=== PATIENT | male | born 1945 | race Caucasian/White ===

== ENCOUNTER → 2018-03-29 | Outpatient (CLI) | payer OTHER ==
[2017-12-19 11:00] VITALS: BP 106/64
[~2018-03-29] MED LIST: ASPI-612 PO; ATOR20TA58 PO; METO25TA4 PO; PRAS10TA9 PO
--- NOTE | 2018-03-29 09:52 | CARD ---
MR#: [id number] Date of Study: 03/29/2018 Ordering Physician: DIAZ MICHAUD, Referring Physician: DIAZ MICHAUD, Tech: ALEJANDRO Dewey APPROVED REPORT EXAM: Two-dimensional and M-mode echocardiogram with Doppler and color Doppler. Other Information Quality : AverageHR: 52bpm INDICATION Hypertension/HCVD RISK FACTORS Hypertension 2D DIMENSIONS RVDd4.4 (2.9-3.5cm)Left Atrium(2D)3.0 (1.6-4.0cm) IVSd0.9 (0.7-1.1cm)Aortic Root(2D)3.3 (2.0-3.7cm) LVDd4.6 (3.9-5.9cm)LVOT Diameter2.0 (1.8-2.4cm) PWd0.8 (0.7-1.1cm)LVDs3.0 (2.5-4.0cm) FS (%) 34.2 %SV60.4 ml LVEF(%)63.3 (>50%) Aortic Valve AoV Peak Otoniel.148.5cm/sAoV VTI34.6cm AO Peak GR.8.8mmHgLVOT Peak Otoniel.99.9cm/s LVOT VTI 22.21cmAO Mean GR.5mmHg MERNA (VMAX)1.36cn6DAM (VTI)2.02cm2 AI P 1/2 Mlag491kq Mitral Valve MV E Pswpbfcx81.5cm/sMV E Peak Gr.40mmHg MV DECEL GYRM352rwUM A Vmiimjrp06.1cm/s MV SEL324mpQ/A Ratio0.7 MVA (PHT)2.09cm2 TDI E/Lateral E'6.7E/Medial E'9.7 Pulmonary Valve PV Peak Uudkqjxe58.9cm/sPV Peak Grad.3mmHg Tricuspid Valve TR P. Tmfrdmpt645cj/sTR Peak Gr.19mmHg Pulmonary Vein S1 Wlswoguy04.9cm/sD2 Gazgvlmq60.8cm/s LEFT VENTRICLE The left ventricle is normal size. There is normal left ventricular wall thickness. The left ventricu lar systolic function is normal and the ejection fraction is within normal range. EF 55% There is nor mal LV segmental wall motion. Transmitral Doppler flow pattern is Grade I-abnormal relaxation pattern . RIGHT VENTRICLE The right ventricle is moderately dilated. The right ventricular systolic function is low normal. ATRIA The left atrium size is normal. The right atrium size is dilated. The interatrial septum is intact wi th no evidence for an atrial septal defect or patent foramen ovale as noted on 2-D or Doppler imaging . AORTIC VALVE The aortic valve is mildly calcified. Doppler and Color Flow revealed mild aortic regurgitation. Ther e is no significant aortic valvular stenosis. There is no aortic valvular vegetation. MITRAL VALVE The mitral valve is normal in structure. A borderline mitral valve prolapse is present. There is no m itral valve stenosis. Doppler and Color-flow revealed trace mitral regurgitation. TRICUSPID VALVE The tricuspid valve is normal in structure and function. Doppler and Color Flow revealed trace to mil d tricuspid regurgitation. There is no tricuspid valve prolapse or vegetation. There is no tricuspid valve stenosis. PULMONIC VALVE The pulmonic valve is not well visualized. Doppler and Color Flow revealed no pulmonic valvular regur gitation. There is no pulmonic valvular stenosis. GREAT VESSELS The aortic root is normal size. The aortic root displays mild sclerocalcific changes of the aortic an nulus. The IVC is normal in size and collapses >50% with inspiration. PERICARDIAL EFFUSION There is no pleural effusion. There is no evidence of significant pericardial effusion. Critical Notification Critical Value: No <Conclusion> The left ventricular systolic function is normal and the ejection fraction is within normal range. EF 55% There is normal LV segmental wall motion. The right ventricle is moderately dilated. The right ventricular systolic function is low normal. Doppler and Color Flow revealed mild aortic regurgitation. Doppler and Color Flow revealed trace to mild tricuspid regurgitation. Signed by : Diaz Michaud, Electronically Approved : 03/29/2018 09:51:11
== END | disposition home or self-care (01) ==
LOC: ECHO 08:52
PROVIDERS: ATTEND Internal Medicine Cardiovascular Disease
DX: I08.2 Rheumatic disorders of both aortic and tricuspid valves (principal); I11.0 Hypertensive heart disease with heart failure; I50.32 Chronic diastolic (congestive) heart failure; I25.10 Atherosclerotic heart disease of native coronary artery without angina pectoris; Z87.891 Personal history of nicotine dependence
CPT/HCPCS: 93306

== ENCOUNTER → 2019-01-11 | Outpatient (CLI) | payer OTHER ==
[2017-12-19 11:00] VITALS: BP 106/64
[~2019-01-11] MED LIST changes: +REGADENOSON 0.4 MG/5 ML DISP.SYRIN. IV ONE
--- NOTE | 2019-01-11 11:57 | RAD ---
MR#: [id number] Date of Study: 01/11/2019 Ordering Physician: DIAZ CRISOSTOMO, Referring Physician: BENJAMIN DEY Tech: JOEPSH Burrell, ARRT (R) (N) APPROVED REPORT Test Type: Pharmacological Stress Nurse/Tech: Mandy Lal R.N. Test Indications: CAD Cardiac History: Hypertension, High cholesterol, former smoker, CAD. 2 stents Medications: Zocor Medical History: See Electronic Medical Record Resting ECG: s rosa with PVC's, runs of bigeminy Resting Heart Rate: 58 bpm Resting Blood Pressure: 157/79mmHg Pretest Chest Pain: No chest pain Nurse/Tech Notes S1S2, lungs sound clear. Pt took his Metoprolol this am, so test changed to Lexiscan. Dr Crisostomo informed by nurse relaying info while is scrubbed in a case Consent: The procedure was explained to the patient in lay terms. Informed consent was witnessed. Elie eout was entered into [employer]. History and Stress Test performed by Mandy Lal R.N. Pharm. Details Pharmacologic stress testing was performed using 0.4mg per 5ml of regadenoson given intravenously ove r 7-10 seconds. Stress Symptoms Dyspnea POST EXERCISE Reason for Termination: Infusion complete Max HR: 96 bpm Max Blood Pressure: 176/84mmHg Blood Pressure response to exercise: Normal blood pressure response during stress. Chest Pain: No. Arrhythmia: Yes. freq. PVC's with runs of bigeminy ST Change: No. INTERPRETATION Stress EKG Conclusion: Baseline EKG showed sinus rhythm. No ischemic changes at peak stress. Few PV C's without any significant arrhythmias. Imaging Protocol IMAGE PROTOCOL: Rest Tc-99m/stress Tc-99m 1 day Rest: Stress: Viability: Radiopharm.Tc99m PkkaozbrwCo25c Sestamibi Rdrr80kMe 32mCi Img Date 01/11/2019 01/11/2019 Inj-Img Jbys72nnb. 45min. Rest Admin Site:IV - Right AntecubitalAdministrator:Dorina Velazquez, RT (R)(N) Stress Admin Site: IV - Right AntecubitalAdministrator: RT Ana M (R)(N) STRESS DATA End Diast. Vol.105.0mlAv. Heart Rate63.0bpm End Syst. Vol.40.0mlCO Index BSA0.0L/min Myocardial Jvqc468.0gEject. Cfmiomqz07.0% Stress Rates Pk. Fill Rate1.63EDV/secLVtime Pk. Fill 198.92msec Pk. Empty Rate2.72ESV/secLVtime Pk. Imftq175.11msec 07/27 Pk. Fill0.97EDV/sec Stress Scores Regional WT1.00Summed WT16.00 Regional WM0.00Summed WM5.00 LV Perfusion Scintigraphic images showed small to moderate fixed defect involving the base to mid inferior wall co nsistent with previous myocardial infarction without any reversibility. Wall Motion Basal inferior wall hypokinesis with ejection fraction calculated at 62%. LV Perf. Quant 17 Seg. SSS12.00 17 Seg. SRS12.00 17 Seg. SDS0.00 Stress Defect Extent (% LAD)10.00Rest Defect Extent (% LAD)19.40Rev. Defect Extent (% LAD)0.00 Stress Defect Extent (% LCX) 0.00Rest Defect Extent (% LCX)0.00Rev. Defect Extent (% LCX)0.00 Stress Defect Extent (% RCA)75.60Rest Defect Extent (% RCA)86.70Rev. Defect Extent (% RCA)0.00 Stress Defect Extent (% WENDIE)26.70Rest Defect Extent (% WENDIE)30.90Rev. Defect Extent (% WENDIE)0.00 Conclusion 1. Regadenoson cardioisotope stress test showed ezzrw-iq-cedbzptg infarct involving the base to mid i nferior wall without any significant ischemia. 2. Basal inferior wall hypokinesis with ejection fraction calculated at 62%. 3. Low risk for cardiac events. Signed by : Jose Hackett, Electronically Approved : 01/11/2019 11:57:22
== END | disposition home or self-care (01) ==
LOC: NM 08:15
PROVIDERS: ATTEND Internal Medicine Cardiovascular Disease
DX: I21.19 ST elevation (STEMI) myocardial infarction involving other coronary artery of inferior wall (principal); I25.10 Atherosclerotic heart disease of native coronary artery without angina pectoris; I10 Essential (primary) hypertension; E78.00 Pure hypercholesterolemia, unspecified; Z87.891 Personal history of nicotine dependence; Z95.818 Presence of other cardiac implants and grafts
CPT/HCPCS: 78452; 93017; A9500; J2785

== ENCOUNTER → 2020-02-01 | Outpatient (CLI) | payer MEDICARE ==
[2017-12-19 11:00] VITALS: BP 106/64
[~2020-02-01] MED LIST changes: -REGADENOSON 0.4 MG/5 ML DISP.SYRIN. IV ONE
--- NOTE | 2020-02-01 14:53 | CARD ---
MR#: [id number] Date of Study: 02/01/2020 Ordering Physician: DIAZ MICHAUD, Referring Physician: DIAZ MICHAUD, Tech: Nieves Andrade [facility] APPROVED REPORT EXAM: Two-dimensional and M-mode echocardiogram with Doppler and color Doppler. Other Information Quality : AverageHR: 69bpm Rhythm : NSR INDICATION COPD Hypertension/HCVD CAD RISK FACTORS Hypertension Hyperlipidemia 2D DIMENSIONS RVDd3.6 (2.9-3.5cm)Left Atrium(2D)3.2 (1.6-4.0cm) IVSd1.0 (0.7-1.1cm)Aortic Root(2D)4.2 (2.0-3.7cm) LVDd4.7 (3.9-5.9cm)LVOT Diameter2.0 (1.8-2.4cm) PWd1.0 (0.7-1.1cm)LVEF(%)56.0 (>50%) Aortic Valve AoV Peak Otoniel.1.6cm/s LEFT VENTRICLE The left ventricle is normal size. There is normal left ventricular wall thickness. The left ventricu lar systolic function is low normal. EF 50% There is normal LV segmental wall motion. Tissue Doppler imaging reveals moderate left ventricular diastolic dysfunction. RIGHT VENTRICLE The right ventricle is moderately dilated. There is normal right ventricular wall thickness. The righ t ventricular systolic function is normal. ATRIA The left atrium size is normal. The right atrium is mildly dilated. The interatrial septum is intact with no evidence for an atrial septal defect or patent foramen ovale as noted on 2-D or Doppler imagi ng. AORTIC VALVE The aortic valve is calcified but opens well. Doppler and Color Flow revealed trace to mild aortic re gurgitation. There is no significant aortic valvular stenosis. MITRAL VALVE The mitral valve is normal in structure and function. There is no evidence of mitral valve prolapse. Doppler and Color Flow revealed no mitral valve regurgitation noted. TRICUSPID VALVE The tricuspid valve is normal in structure and function. Doppler and Color Flow revealed no tricuspid valve regurgitation noted. There is no tricuspid valve stenosis. PULMONIC VALVE Doppler and Color Flow revealed no pulmonic valvular regurgitation. There is no pulmonic valvular gunnar nosis. GREAT VESSELS The aortic root is normal in size. The ascending aorta is mildly dilated at 4.2 cm. The IVC is normal in size and collapses >50% with inspiration. PERICARDIAL EFFUSION There is no evidence of significant pericardial effusion. Critical Notification Critical Value: No <Conclusion> The left ventricular systolic function is low normal. EF 50% There is normal LV segmental wall motion. The right ventricle is moderately dilated. Doppler and Color Flow revealed trace to mild aortic regurgitation. The ascending aorta is mildly dilated at 4.2 cm. Signed by : Diaz Michaud, Electronically Approved : 02/01/2020 14:52:35
--- NOTE | 2020-02-01 15:55 | RAD ---
Bilateral carotid artery duplex ultrasound study without comparison for hypertension, prior [place], coronary artery disease. TECHNIQUE AND FINDINGS: Real-time grayscale and color and spectral Doppler evaluation of the carotid arteries is performed. There is calcified atherosclerosis involving the common carotid artery, with bulky calcified disease in the proximal right internal carotid artery. Peak systolic velocity within the right common carotid artery 65 cm/s, and within the right internal carotid artery, 131 cm/s, constituting a ratio of 2.02. Highest end-diastolic velocity of the right internal carotid artery is 40 cm/s. On the left, there is mild calcified atherosclerosis of the common carotid artery, with scan with bulky mixed calcified and soft atherosclerosis of the left internal carotid artery. Peak systolic velocity of the left common carotid artery is 81 cm/s proximally, with a peak systolic velocity of the left internal carotid artery being 105 seen per second. This corresponds to a ratio 1.3. Highest end-diastolic velocity left internal carotid artery is 35 cm/s. There is antegrade flow within both vertebral arteries. IMPRESSION: 1. Bulky calcified atherosclerosis in the right internal carotid artery with findings corresponding to 50 is 69 percent stenosis. 2. Bulky mixed atherosclerosis in the left internal carotid artery, with findings corresponding to less than 50 percent stenosis. Stenosis calculations for CT, MR and conventional angiography are based upon measurement of the distal ICA diameter in accordance with the NASCET methodology. Stenosis calculations for carotid ultrasound studies are derived from validated velocity criteria which are known to correlate with the NASCET methodology. Electronically signed by: Trevin Kirk MD (02/01/2020 3:52 PM) [id number]
--- NOTE | 2020-02-01 15:59 | RAD ---
Abdominal aortic ultrasound without comparison for coronary artery disease. TECHNIQUE AND FINDINGS: Real-time grayscale and color and spectral Doppler evaluation of the aortoiliac arteries is performed. The aorta is patent. The infrarenal aorta is mildly aneurysmal 3.9 cm. Bilateral common iliac arteries are patent and nonaneurysmal. Peak systolic velocity of the aorta is 76.4 cm. Peak systolic velocity of the right iliac artery is 366.5 cm, and of the left internal iliac artery to 11.6 cm. These velocities are elevated and suggest hemodynamically significant stenosis bilaterally, right greater than left. IMPRESSION: 1. Mildly aneurysmal abdominal aorta at 3.9 cm. 2. Hemodynamic significant bilateral common iliac artery stenoses. Electronically signed by: Trevin Kirk MD (02/01/2020 3:56 PM) [id number]
== END ==
LOC: ECHO 12:41
PROVIDERS: ATTEND Internal Medicine Cardiovascular Disease
DX: I71.4 Abdominal aortic aneurysm, without rupture (principal); I77.1 Stricture of artery; I65.23 Occlusion and stenosis of bilateral carotid arteries; I10 Essential (primary) hypertension; I25.10 Atherosclerotic heart disease of native coronary artery without angina pectoris
CPT/HCPCS: 93306; 93880; 93978

== ENCOUNTER 2020-06-15 21:39 | Emergency (ER) | payer MEDICARE ==
[~2020-06-15] VITALS: Ht 175.3 cm; Wt 68.2 kg
[~2020-06-15 21:39] MED LIST changes: -ASPI-612 PO; +ASPI-886 PO
[2020-06-15 23:09] LABS: BASO # 0.1 x10^3/uL (0.0-0.2); BASO % 1 % (0-3); EOS # 0.2 x10^3/uL (0.0-0.7); EOS % 2 % (0-3); HEMATOCRIT 44.6 % (39.0-53.0); HEMOGLOBIN 15.5 g/dL (13.0-17.5); LYMPH # 0.9 x10^3/uL (1.0-4.8); LYMPH % 9 % (24-48); MEAN CORPUSCULAR HEMOGLOBIN 30 pg (25-35); MEAN CORPUSCULAR HGB CONC 35 g/dL (31-37); MEAN CORPUSCULAR VOLUME 86 fL (79-100); MONO # 1.1 x10^3/uL (0.0-1.1); MONO % 10 % (0-9); NEUT # 7.9 x10^3/uL (1.8-7.7); NEUT % 78 % (31-73); PLATELET COUNT 331 x10^3/uL (140-400); RED CELL DISTRIBUTION WIDTH 13.4 % (11.5-14.5); WHITE BLOOD COUNT 10.2 x10^3/uL (4.0-11.0)
[2020-06-15 23:16] LABS: CALCIUM 9.6 mg/dL (8.5-10.1); CREATININE 0.9 mg/dL (0.7-1.3); GFR 82.5
[2020-06-15 23:23] LABS: ALBUMIN 3.8 g/dL (3.4-5.0); ALBUMIN/GLOBULIN RATIO 1.1 (1.0-1.7); C-REACTIVE PROTEIN 3.4 mg/L (0-3.3); TOTAL BILIRUBIN 1.2 mg/dL (0.2-1.0); TOTAL PROTEIN 7.4 g/dL (6.4-8.2)
[2020-06-15 23:26] VITALS: BP 146/76
[2020-06-15] MEDS ORDERED: IPRATRPIUM/ALBUTEROL 0.5/2.5MG 3 ML NEBU. NEB ONE (23:30)
[2020-06-15] MEDS ORDERED: METH4TAB2 PO (23:43)
[2020-06-15] MEDS ORDERED: VENTOLIN HFA18 GM INH (23:43)
--- NOTE | 2020-06-15 23:44 | ED.ADGEN ---
Past Medical History Past Medical History: [place] Past Surgical History: Other Additional Past Surgical Histo: cardiac stents Smoking Status: Former Smoker Alcohol Use: None Drug Use: Marijuana General Adult EDM: Chief Complaint: DYSPNEA/RESPIRATOY DISTRESS HPI: HPI: Patient is 75-year-old male with past medical history of coronary artery disease who presents to the emergency room complaining of shortness of breath. Patient states that he was fine this morning. He was working today and got into some dust. Shortly after he started having shortness of breath. He states that he can tell he is having a hard time breathing and can hear himself breathing. He is unsure if he is having any wheezing. He is not having any cough, URI symptoms, fever, chills, sweats, abdominal pain, change of taste, change of smell. He does not have any chest pain with this. This does not feel similar to when he had his heart attack. Review of Systems: Review of Systems: Complete ROS is negative unless otherwise documented in HPI Current Medications: Current Medications Medications (Trade) Dose Ordered Sig/Joi Start Time Stop Time Status Last Admin Dose Admin Albuterol/ Ipratropium (Duoneb) 3 ml 1X ONCE 06/15/20 23:30 06/15/20 23:31 DC 06/15/20 23:05 3 ML Dexamethasone Sodium Phosphate (Decadron) 10 mg 1X ONCE 06/15/20 23:45 06/15/20 23:46 DC 06/15/20 23:25 10 MG Allergies: Allergies: Allergies Coded Allergies Type Severity Reaction Last Updated Verified No Known Drug Allergies 12/17/17 No Physical Exam: PE: General: Awake, alert, NAD. Well Nourished, well hydrated. Cooperative HEENT: Atraumatic, EOMI, PERRL, airway patent, moist oral mucosa Neck: Supple, trachea midline Respiratory: Mild tachypnea, diffuse minimal wheezing, decreased breath sounds bilaterally CV: RRR, no murmur, cap refill <2 GI: Soft, nondistended, nontender, no masses MSK: No obvious deformities Skin: Warm, dry, intact Neuro: A&O x3, speech NL, sensory and motor grossly intact, no focal deficits Psych: Normal affect, normal mood, not suicidal or homicidal Current Patient Data: Labs: Laboratory Tests Test 06/15/20 23:00 White Blood Count 10.2 x10^3/uL (4.0-11.0) Red Blood Count 5.20 x10^6/uL (4.30-5.70) Hemoglobin 15.5 g/dL (13.0-17.5) Hematocrit 44.6 % (39.0-53.0) Mean Corpuscular Volume 86 fL (79-100) Mean Corpuscular Hemoglobin 30 pg (25-35) Mean Corpuscular Hemoglobin Concent 35 g/dL (31-37) Red Cell Distribution Width 13.4 % (11.5-14.5) Platelet Count 331 x10^3/uL (140-400) Neutrophils (%) (Auto) 78 % (31-73) H Lymphocytes (%) (Auto) 9 % (24-48) L Monocytes (%) (Auto) 10 % (0-9) H Eosinophils (%) (Auto) 2 % (0-3) Basophils (%) (Auto) 1 % (0-3) Neutrophils # (Auto) 7.9 x10^3/uL (1.8-7.7) H Lymphocytes # (Auto) 0.9 x10^3/uL (1.0-4.8) L Monocytes # (Auto) 1.1 x10^3/uL (0.0-1.1) Eosinophils # (Auto) 0.2 x10^3/uL (0.0-0.7) Basophils # (Auto) 0.1 x10^3/uL (0.0-0.2) Sodium Level 135 mmol/L (136-145) L Potassium Level 4.0 mmol/L (3.5-5.1) Chloride Level 100 mmol/L (98-107) Carbon Dioxide Level 27 mmol/L (21-32) Anion Gap 8 (6-14) Blood Urea Nitrogen 17 mg/dL (8-26) Creatinine 0.9 mg/dL (0.7-1.3) Estimated GFR (Cockcroft-Gault) 82.5 BUN/Creatinine Ratio 19 (6-20) Glucose Level 107 mg/dL (70-99) H Calcium Level 9.6 mg/dL (8.5-10.1) Total Bilirubin 1.2 mg/dL (0.2-1.0) H Aspartate Amino Transferase (AST) 21 U/L (15-37) Alanine Aminotransferase (ALT) 18 U/L (16-63) Alkaline Phosphatase 120 U/L (46-116) H Lactate Dehydrogenase 155 U/L (85-227) Creatine Kinase 86 U/L (39-308) Troponin I Quantitative < 0.017 ng/mL (0.000-0.055) C-Reactive Protein, Quantitative 3.4 mg/L (0-3.3) H TN-Mlh-H-Type Natriuretic Peptide 574 pg/mL (0-124) H Total Protein 7.4 g/dL (6.4-8.2) Albumin 3.8 g/dL (3.4-5.0) Albumin/Globulin Ratio 1.1 (1.0-1.7) Laboratory Tests 06/15/20 23:00 Laboratory Tests 06/15/20 23:00 Vital Signs: Vital Signs Date Time Temp Pulse Resp B/P (MAP) Pulse Ox O2 Delivery O2 Flow Rate FiO2 06/15/20 23:26 100 26 146/76 (99) 99 Nasal Cannula 2.0 06/15/20 22:10 97.4 97.4 EKG: EKG: [] Heart Score: Risk Factors: Risk Factors: DM, Current or recent (<one month) smoker, HTN, HLP, family history of CAD, obesity. Risk Scores: Score 0 - 3: 2.5% MACE over next 6 weeks - Discharge Home Score 4 - 6: 20.3% MACE over next 6 weeks - Admit for Clinical Observation Score 7 - 10: 72.7% MACE over next 6 weeks - Early Invasive Strategies Radiology/Procedures: Radiology/Procedures: [] Course & Med Decision Making: Course & Med Decision Making Pertinent Labs and Imaging studies reviewed. (See chart for details) Patient is 75-year-old male who presents to the emergency room complaining of shortness of breath. Patient has mild tachypnea and wheezing. He will be given DuoNeb and Decadron. He likely has undiagnosed COPD given his long history of smoking. He does not have any other infectious symptoms that would be suggestive of coronavirus 19 and he does not want to be tested at this time. Chest x-ray shows chronic changes. Lab work is overall unremarkable. Patient's test results and vitals while in the ED were fully reviewed and discussed with the patient. Patient is stable and at this time does not need admission to the hospital. We have discussed strict return precautions and the importance of following up with their Primary Care Physician. Patient stated understanding and was given an opportunity to ask any questions. Patient is in agreement with plan. Dragon Disclaimer: [place] Disclaimer: This electronic medical record was generated, in whole or in part, using a voice recognition dictation system. Departure Departure Impression: Primary Impression: Shortness of breath Additional Impression: Reactive airway disease Disposition: 01 DC HOME SELF CARE/HOMELESS Condition: STABLE Referrals: Brett JOSHI MD (PCP) Patient Instructions: Shortness of Breath Scripts Albuterol Sulfate (VENTOLIN HFA INHALER) 18 Gm Hfa.aer.ad 2 PUFF INH Q4HRS PRN for SHORTNESS OF BREATH, #1 INHALER 0 Refills Prov: ELIANA ALTAMIRANO MD 06/15/20 Methylprednisolone (MEDROL) 4 Mg Tab.ds.pk 1 PKG PO UD for inflammation, #1 PKG Prov: ELIANA ALTAMIRANO MD 06/15/20 Problem Qualifiers ELIANA ALTAMIRANO MD Jun 15, 2020 23:43
[2020-06-15] MEDS ORDERED: DEXAMETHASONE SOD PHOS 4 MG/ML VIAL IVP ONE (23:45)
--- NOTE | 2020-06-16 01:02 | RAD ---
EXAMINATION: CHEST AP ONLY CLINICAL HISTORY: Cough, possible Covid EXAM DATE/TIME: 06/15/2020 10:30 PM COMPARISON: 12/17/2017 FINDINGS: Lines, Tubes, and Devices: None. Cardiomediastinal Silhouette: Normal heart size. Aortic atherosclerotic calcification. Lungs and Pleura: No evidence of focal airspace consolidation or pleural effusion. Pulmonary vasculature unremarkable. Probable old granuloma in the right midlung zone, similar to prior study. Bones and Soft Tissues: Degenerative changes of the thoracic spine. IMPRESSION: No evidence of acute cardiopulmonary abnormality or significant interval change. Electronically signed by: Yosvany Rojo DO (06/16/2020 12:59 AM) [facility]
--- NOTE | 2020-06-16 11:48 | EKG ---
[facility] [address] [place] [address] Test Date: 2020-06-15 Test Time: 22:45:13 Pat Name: ISAIAH NUNEZ Department: Room: Gender: M Production Quality Manager: : [id number] Requested By: ELIANA ALTAMIRANO Order Number: [id number] Reading MD: Measurements Intervals Jarratt Rate: 88 P: 76 LA: 146 QRS: 37 QRSD: 100 T: 67 QT: 348 QTc: 424 Interpretive Statements SINUS RHYTHM LEFT ATRIAL ABNORMALITY QRS(T) CONTOUR ABNORMALITY CONSISTENT WITH INFERIOR INFARCT PROBABLY OLD T ABNORMALITY IN LATERAL LEADS ABNORMAL ECG RI6.02 No previous ECG available for comparison
== END 2020-06-16 00:38 | disposition home or self-care (01) ==
LOC: ER 21:39
DX: J45.909 Unspecified asthma, uncomplicated (principal); R06.02 Shortness of breath; R00.0 Tachycardia, unspecified; I25.10 Atherosclerotic heart disease of native coronary artery without angina pectoris; I25.2 Old myocardial infarction; F12.90 Cannabis use, unspecified, uncomplicated; Z98.890 Other specified postprocedural states; Z87.891 Personal history of nicotine dependence
CPT/HCPCS: 36415; 71045; 80053; 82550; 83615; 83880; 84484; 85025; 86140; 93005; 94640; 96374; 99285; J1100

== ENCOUNTER → 2021-02-11 | Outpatient (CLI) | payer MEDICARE ==
[~2021-02-11] MED LIST changes: +METH4TAB2 PO; +VENTOLIN HFA18 GM INH
--- NOTE | 2021-02-11 14:03 | RAD ---
EXAM: CT CHEST WITHOUT CONTRAST (LDCT LUNG CANCER SCREENING). HISTORY: Risk factors for pulmonary malignancy. 60 year smoking 2 packs per day, no family history of lung cancer. TECHNIQUE: CT of the chest was performed without intravenous contrast using a low-dose lung screening protocol. Findings analysis is based on ACR Lung-RADS v1.1. *One or more of the following individual ized dose reduction techniques were utilized for this examination: 1. Automated exposure control. 2. Adjustment of the mA and/or kV according to patient size. 3. Use of iterative reconstruction technique. RADIATION DOSE: DLP: 73.8 mGy/cm CTDI VOL(per sequence): 2 COMPARISON: None. FINDINGS: Nodules: There is a cavitary, spiculated mass in the left upper lobe measuring 3.2 x 1.2 x 1.7 cm ext ending to the lateral pleural surface and fissure. . Calcified granuloma in the left upper lobe. Other findings: Images of the upper abdomen reveal no acute abnormality. Bone windows reveal no suspi cious lesions. 1.9 cm fat-containing paratracheal lymph node and 1.8 cm solid paratracheal lymph nodes are present. There is no pleural or pericardial effusion. The heart is not enlarged. There is severe three-vessel coronary artery calcification. Mild atherosclerotic disease of aorta and its partially visualized bra txh vessels of the upper abdomen. Calcifications in the region of the gallbladder fossa, likely afshan lithiasis. Mild emphysematous changes. Mild, diffuse bronchial wall thickening IMPRESSION/RECOMMENDATION: 1. ACR Lung-RADS category: LI-RADS 4X There is a cavitary, spiculated mass in the left upper lobe halley suring 3.2 cm in maximum dimension concerning for primary lung malignancy. PET/CT and/or tissue sampl ing are recommended. Electronically signed by: Gerardo Kahn (02/11/2021 2:00 PM) [id number]
== END ==
LOC: CT 09:55
PROVIDERS: ATTEND Family Medicine
DX: Z12.2 Encounter for screening for malignant neoplasm of respiratory organs (principal); R91.8 Other nonspecific abnormal finding of lung field; F17.210 Nicotine dependence, cigarettes, uncomplicated
CPT/HCPCS: 71271

== ENCOUNTER → 2021-02-27 | Outpatient (CLI) | payer MEDICARE ==
--- NOTE | 2021-02-27 12:02 | RAD ---
EXAM: Dual modality PET-CT Scan DATE: 02/27/2021 RADIOPHARMACEUTICAL: 14.41 mCi F-18 fluorodeoxyglucose (FDG) IV. CLINICAL HISTORY: Lung mass. COMPARISON: CT dated 02/11/2021. TECHNIQUE: Approximately 45 minutes after tracer administration, routine, attenuation-corrected Posit leonides Emission Tomography (PET) images were obtained from the level of the base of the skull through th e level of the mid thighs. Tomographic reconstructions are reviewed in coronal, transaxial and sagitt al planes. Non-contrast CT imaging was performed for attenuation correction and localization purpose s only. These images do not constitute a diagnostic-quality CT examination and were not used to diag nose disease independently of the PET images. The blood glucose level was 94 mg/dL at the time of FDG administration. *One or more of the following individualized dose reduction techniques were utilized for this examina tion: 1. Automated exposure control. 2. Adjustment of the mA and/or kV according to patient size. 3. Use of iterative reconstruction technique. FINDINGS: There is a radiotracer avid 3.1 cm irregular spiculated radiotracer avid mass with small in ternal cavitary component within the lateral left upper lobe with a maximum SUV of 9.7, the appearanc e of which favors primary bronchogenic neoplasm. There is mild nonspecific radiotracer activity withi n a left hilar lymph node with a maximum SUV of 2.4. This is not significantly above the blood pool a nd is within physiologic limits. There is increased radiotracer activity within the esophagus with an SUV of 3.2, the appearance of which favors esophagitis. No esophageal mass is seen. There is heterog eneous physiologic activity within the liver and osseous structures. There is physiologic activity wi thin the bowel and renal collecting system. The CT portion of the exam demonstrates a lobulated mass with spiculated margins and internal cavitat ion within the inferior lateral left upper lobe measuring 3.1 cm. There is pulmonary emphysema. There is a calcified granuloma within the right upper lobe. There is no pneumothorax or pleural effusion. The heart is normal in size. There are nonspecific mediastinal and hilar lymph nodes. There is a tiny hiatal hernia. No hepatic lesion is seen. There is a stone within the gallbladder neck. There is slight gallbladder wall calcification. The pancreas and spleen are unremarkable. There is slight nodular thickening of t he adrenal glands or there are small bilateral adrenal adenomas. The kidneys are unremarkable. There is no appendicitis. There is no bowel obstruction. There is moderate colonic stool. There is colonic diverticulosis. The prostate is enlarged and contains dystrophic calcifications. This results in deformation of the u rinary bladder. There is an infrarenal abdominal aortic aneurysm measuring 4.1 cm. There is aortobiil iac atherosclerosis. There is degenerative change throughout the spine and bony pelvis. There are few benign bone islands. The visualized portions of the brain are unremarkable. IMPRESSION: 1. 3.1 cm radiotracer avid left upper lobe mass with a maximum SUV of 9.7, the appearance of which fa vors primary bronchogenic neoplasm. 2. No convincing pathologically enlarged radiotracer avid mediastinal or hilar lymph node. There is a nonspecific left hilar lymph node with maximum SUV of 2.4, remaining within normal limits. 3. Mild radiotracer activity involving the esophagus. Correlate for esophagitis. No esophageal mass i s seen. 4. Pulmonary emphysema. 5. Stone within the gallbladder neck and slight gallbladder wall calcification. This can be better as sessed with color sonography. 6. Colonic diverticulosis. 7. Prostatomegaly resulting in deformation of the bladder base. Correlate with PSA levels. 8. 4.1 cm atherosclerotic abdominal aortic aneurysm. Electronically signed by: Dorina Gutierrez MD (02/27/2021 12:00 PM) [id number]
== END ==
LOC: PETSC 08:56
PROVIDERS: ATTEND Family Medicine
DX: R91.8 Other nonspecific abnormal finding of lung field (principal); J43.8 Other emphysema; K80.20 Calculus of gallbladder without cholecystitis without obstruction; K57.30 Diverticulosis of large intestine without perforation or abscess without bleeding; I71.4 Abdominal aortic aneurysm, without rupture; N40.1 Benign prostatic hyperplasia with lower urinary tract symptoms
CPT/HCPCS: 78815; A9552

== ENCOUNTER → 2021-03-26 | Outpatient (CLI) | payer MEDICARE ==
--- NOTE | 2021-03-26 12:45 | RAD ---
MR#: [id number] Date of Study: 03/26/2021 Ordering Physician: DIAZ MICHAUD, Referring Physician: DIAZ MICHAUD, Tech: Marino Coronel MBA, RDMS, RVT, RDCS, RTR APPROVED REPORT Patient Location: OUT-PATIENT Indications PAD Findings Right arm 142, left arm 149 Right ankle 142, left ankle 160 Right JEY 0.95, left JEY 1.1 Critical Notification Critical Value: No <Conclusion> 1. Normal bilateral JEY Signed by : Diaz Michaud, Electronically Approved : 03/26/2021 12:44:56
--- NOTE | 2021-03-26 12:46 | RAD ---
MR#: [id number] Date of Study: 03/26/2021 Ordering Physician: DIAZ MICHAUD, Referring Physician: DIAZ MICHAUD, Tech: Marino Coronel, TARIK, RDMS, RVT, RDCS, RTR APPROVED REPORT Patient Location: OUT-PATIENT Indications PAD VELOCITY AND DOPPLER WAVEFORM ANALYSIS RIGHT cm/secWaveformSeverity LEFT cm/secWaveform Severity dCFA 154.0BiphasicdCFA 111.0Biphasic Prof Fem Art. 56.0BiphasicProf Fem Art. 47.0Biphasic Fem Art Prox. 100.0BiphasicFem Art Prox. 115.0Biphasic Fem Art Mid. 156.0BiphasicFem Art Mid. 119.0Biphasic Fem Art Dist. 120.0BiphasicFem Art Dist. 84.0Biphasic Pop Art(Fossa) 49.0BiphasicPop Art(AK) 64.0Biphasic [employer] Prox. 41.0BiphasicPTA Prox. 77.0Biphasic [employer] Dist. 34.0BiphasicPTA Dist. 58.0Biphasic Per Art Mid. Per Art Mid. 48.0Biphasic ADELINA Prox. 35.0BiphasicATA Prox. 53.0Biphasic DPA 32BiphasicDPA 42Biphasic Findings Grayscale images of the bilateral lower extremity arterial vessels demonstrates moderate diffuse athe rosclerotic plaque. Biphasic waveforms noted throughout the bilateral lower extremity arterial vessels. Spectral waveforms and velocities are within normal limits overall with two-vessel runoff on the righ t and three-vessel runoff on the left. No focal high-grade stenosis is identified. The right perone al artery was not well visualized. Critical Notification Critical Value: No <Conclusion> 1. No significant bilateral lower extremity arterial disease. Signed by : Diaz Michaud, Electronically Approved : 03/26/2021 12:46:25
--- NOTE | 2021-03-26 12:48 | RAD ---
MR#: [id number] Date of Study: 03/26/2021 Ordering Physician: DIAZ MICHAUD, Referring Physician: DIAZ MICHAUD, Tech: Marino Coronel MBA, RDMS, RVT, RDCS, RTR APPROVED REPORT Patient Location: OUT-PATIENT Indications AAA Duplex Results A/PTransverseLongitudinal Distal Aorta 3.8cm4.1cm Rt. Common Iliac Artery1.0cm Lt. Common Iliac Artery 1.1cm Doppler VelocityWaveform Distal Aorta 72.0 cm/sec Rt. Common Iliac Gjcrza134.0 cm/sec Lt. Common Iliac Artery 220.0 cm/sec Findings There is a small to moderate size distal abdominal aortic aneurysm measuring approximately 3.8 cm. M ildly elevated bilateral iliac velocities are noted. The proximal and mid abdominal aorta was not we ll visualized. Critical Notification Critical Value: No <Conclusion> 1. Small to moderate size distal abdominal aortic aneurysm measuring approximately 3.8 cm. Limited evaluation of the abdominal aorta on this technically difficult study. Signed by : Diaz Michaud, Electronically Approved : 03/26/2021 12:47:43
--- NOTE | 2021-03-26 12:51 | RAD ---
MR#: [id number] Date of Study: 03/26/2021 Ordering Physician: DIAZ MICHAUD, Referring Physician: DIAZ MICHAUD, Tech: Marino Coronel MBA, RDMS, RVT, RDCS, RTR APPROVED REPORT Patient Location: OUT-PATIENT Laterality:Bilateral Indications CAROTID STENOSIS Doppler Spectral Velocity Analysis Right Left pCCA 81/18 cm/spCCA 104/28 cm/s mCCA 73/21 cm/smCCA 87/25 cm/s dCCA 66/20 cm/sdCCA 75/25 cm/s Bulb 106/23 cm/sBulb 93/28 cm/s ECA 184/ cm/sECA 216/ cm/s pICA 110/28 cm/spICA 122/33 cm/s Janusz 177/62 cm/smICA 138/44 cm/s dICA 226/82 cm/sdICA 134/38 cm/s Vert. 76/ cm/sVert. 65/ cm/s Subcl. 110/ cm/sSubcl. 114/ cm/s ICA/CCA 2.79ICA/CCA 1.33 Findings Grayscale images of the bilateral carotid vessels demonstrates moderate to severe diffuse atheroscler osis. On the right side there is likely a moderate 50 to 69% stenosis based on velocity criteria involving the distal internal carotid artery. On the left side there is overall again moderate 50 to 69% steno sis although based on velocity criteria end-diastolic velocities this is likely less than 50%. ICA to CCA ratios are mildly elevated at 3.1 on the right side and within normal limits on the left s brittnee. Critical Notification Critical Value: No <Conclusion> 1. Approximate 70% stenosis involving the distal right internal carotid artery. Signed by : Diaz Michaud, Electronically Approved : 03/26/2021 12:50:55
--- NOTE | 2021-03-26 16:19 | CARD ---
MR#: [id number] Date of Study: 03/26/2021 Ordering Physician: DIAZ MICHAUD, Referring Physician: DIAZ MICHAUD, Tech: Andrew Coates [facility] APPROVED REPORT EXAM: Two-dimensional and M-mode echocardiogram with Doppler and color Doppler. Other Information Quality : AverageHR: 64bpm Rhythm : NSR INDICATION Dyspnea RISK FACTORS Hypertension Hyperlipidemia Smoking Previous smoker, Recently diagnosed lung carcinoma 2D DIMENSIONS RVDd5.6 (2.9-3.5cm)Left Atrium(2D)3.3 (1.6-4.0cm) IVSd1.1 (0.7-1.1cm)Aortic Root(2D)3.7 (2.0-3.7cm) LVDd4.4 (3.9-5.9cm)LVOT Diameter1.9 (1.8-2.4cm) PWd1.0 (0.7-1.1cm)LVDs3.4 (2.5-4.0cm) FS (%) 22.7 %SV40.3 ml LVEF(%)45.9 (>50%) Aortic Valve AoV Peak Otoniel.181.9cm/sAoV VTI38.8cm AO Peak GR.13.2mmHgLVOT Peak Otoniel.93.7cm/s AO Mean GR.6mmHgAVA (VMAX)1.45cm2 Mitral Valve MV E Ianwhmcy12.8cm/sMV E Peak Gr.4mmHg MV DECEL [id number] A Mglpnkix294.7cm/s MV E Mean Gr.2mmHgE/A Ratio0.8 Pulmonary Valve PV Peak Fylqibkn968.7cm/s Tricuspid Valve TR P. Qwvvbasr544ts/sTR Peak Gr.24mmHg Pulmonary Vein S1 Hhqncila17.3cm/sD2 Fevfjwbm92.5cm/s LEFT VENTRICLE The left ventricle is normal size. There is normal left ventricular wall thickness. The left ventricu lar systolic function is normal. The ejection fraction is 55%. There is normal LV segmental wall jurgen on. No left ventricle thrombus noted on this study. There is no ventricular septal defect visualized. There is no left ventricular aneurysm. There is no mass noted in the left ventricle. RIGHT VENTRICLE The right ventricle is moderately dilated. There is normal right ventricular wall thickness. Systolic function is moderately reduced. Tapse reduced at 13mm. ATRIA The left atrium is mildly dilated. The right atrium is borderline dilated. The interatrial septum is intact with no evidence for an atrial septal defect or patent foramen ovale as noted on 2-D or Dopple r imaging. AORTIC VALVE The aortic valve is moderately calcified. Doppler and Color Flow revealed trace aortic regurgitation. There is no significant aortic valvular stenosis. There is no aortic valvular vegetation. MITRAL VALVE The mitral valve is normal in structure and function. There is no evidence of mitral valve prolapse. There is no mitral valve stenosis. Doppler and Color-flow revealed trace mitral regurgitation. TRICUSPID VALVE The tricuspid valve is normal in structure and function. Doppler and Color Flow revealed trace tricus pid regurgitation. There is no tricuspid valve prolapse or vegetation. There is no tricuspid valve st enosis. PULMONIC VALVE The pulmonary valve is normal in structure and function. Doppler and Color Flow revealed no pulmonic valvular regurgitation. There is no pulmonic valvular stenosis. GREAT VESSELS The aortic root is normal in size. The ascending aorta is normal in size. The pulmonary artery is nor mal. The IVC is normal in size and collapses >50% with inspiration. PERICARDIAL EFFUSION There is no pleural effusion. There is no evidence of significant pericardial effusion. Critical Notification Critical Value: No <Conclusion> The left ventricular systolic function is normal. The ejection fraction is 55%. There is normal LV segmental wall motion. The right ventricle is moderately dilated. Trace mitral regurgitation. Trace tricuspid regurgitation. There is no evidence of significant pericardial effusion. Signed by : Jose Hackett, Electronically Approved : 03/26/2021 16:19:07
== END ==
LOC: ECHO 07:21
PROVIDERS: ATTEND Internal Medicine Cardiovascular Disease
DX: I71.4 Abdominal aortic aneurysm, without rupture (principal); I65.23 Occlusion and stenosis of bilateral carotid arteries; I25.10 Atherosclerotic heart disease of native coronary artery without angina pectoris; I73.9 Peripheral vascular disease, unspecified
CPT/HCPCS: 76770; 93306; 93880; 93922; 93925